=== PATIENT | female | born 1955 | race African-American/Black ===

== ENCOUNTER 2019-07-13 16:05 | Emergency (ER) | payer OTHER ==
[~2019-07-13] VITALS: Ht 165.1 cm; Wt 77.1 kg
--- OUTSIDE RECORDS SUMMARY | 2019-07-13 16:07 | XMS REPORT ---
Author Author [facility] Address Unknown Phone Unavailable Care Team Providers Care Bindery Supervisor Name Role Phone Unavailable Unavailable Problems This patient has no known problems. Allergies, Adverse Reactions, Alerts This patient has no known allergies or adverse reactions. Medications This patient has no known medications. Encounters Start Date/Time End Date/Time Encounter Type Admission Type Attending [facility] Facility Care Department Encounter ID 2018-09-08 00:00:00 2018-09-08 00:00:00 Outpatient [facility] [id number] 2018-09-01 00:00:00 2018-09-01 00:00:00 Outpatient [facility] [id number] 2018-08-24 00:00:00 2018-08-24 00:00:00 Outpatient [facility] [id number] 2018-07-28 00:00:00 2018-07-28 00:00:00 Outpatient [facility] [id number] 2018-07-14 00:00:00 2018-07-14 00:00:00 Outpatient [facility] [id number] 2018-06-02 00:00:00 2018-06-02 00:00:00 Outpatient [facility] [id number] 2018-05-24 00:00:00 2018-05-24 00:00:00 Outpatient [facility] [id number] 2018-04-04 00:00:00 2018-04-04 00:00:00 Outpatient [facility] [id number] 2018-03-31 09:51:07 2018-03-31 09:51:07 Outpatient [facility] [id number] 2018-03-31 09:44:10 2018-03-31 09:44:10 Outpatient [facility] [id number] 2018-03-31 08:45:55 2018-03-31 08:45:55 Outpatient [facility] [id number] 2018-03-11 15:16:48 2018-03-11 15:16:48 Outpatient [facility] [id number] 2018-02-25 14:50:34 2018-02-25 14:50:34 Outpatient [facility] [id number] 2018-02-24 14:03:11 2018-02-24 14:03:11 Outpatient [facility] [id number] 2018-02-17 00:00:00 2018-02-17 00:00:00 Outpatient [facility] [id number] 2018-02-16 13:30:38 2018-02-16 13:30:38 Outpatient [facility] [id number] 2018-02-09 00:00:00 2018-02-09 00:00:00 Outpatient [facility] [id number] 2018-02-09 00:00:00 2018-02-09 00:00:00 Outpatient [facility] [id number] 2018-02-07 09:26:11 2018-02-07 09:26:11 Outpatient [facility] [id number] 2018-02-01 10:51:46 2018-02-01 10:51:46 Outpatient [facility] [id number] 2018-02-01 00:00:00 2018-02-01 00:00:00 Outpatient [facility] [id number] 2018-01-14 09:33:33 2018-01-14 09:33:33 Outpatient [facility] [id number] 2018-01-14 00:00:00 2018-01-14 00:00:00 Outpatient [facility] [id number] 2018-01-05 00:00:00 2018-01-05 00:00:00 Outpatient [facility] [id number] 2018-01-03 07:01:25 2018-01-03 07:01:25 Outpatient [facility] [id number] 2018-01-03 00:00:00 2018-01-03 00:00:00 Outpatient [facility] [id number] 2017-12-24 00:00:00 2017-12-24 00:00:00 Outpatient [facility] [id number] 2017-12-24 00:00:00 2017-12-24 00:00:00 Outpatient [facility] [id number] 2017-12-23 10:00:58 2017-12-23 10:00:58 Outpatient [facility] [id number] 2017-12-23 09:52:37 2017-12-23 09:52:37 Outpatient [facility] [id number] 2017-12-21 14:58:17 2017-12-21 14:58:17 Outpatient [facility] [id number] 2017-12-21 00:00:00 2017-12-21 00:00:00 Outpatient [facility] [id number] 2017-12-07 14:26:59 2017-12-07 14:26:59 Outpatient [facility] [id number] 2017-12-07 12:08:21 2017-12-07 12:08:21 Outpatient [facility] [id number] 2017-12-07 00:00:00 2017-12-07 00:00:00 Outpatient [facility] [id number] 2017-12-07 00:00:00 2017-12-07 00:00:00 Outpatient [facility] [id number] 2017-12-03 00:00:00 2017-12-03 00:00:00 Outpatient [facility] [id number] 2017-11-29 11:29:31 2017-11-29 11:29:31 Outpatient [facility] [id number] 2017-03-24 00:00:00 2017-03-24 00:00:00 Outpatient [facility] [id number] 2017-03-18 00:00:00 2017-03-18 00:00:00 Outpatient [facility] [id number] 2017-03-15 00:00:00 2017-03-15 00:00:00 Outpatient [facility] [id number] 2017-03-11 00:00:00 2017-03-11 00:00:00 Outpatient [facility] [id number] 2016-11-12 00:00:00 2016-11-12 00:00:00 Outpatient [facility] [id number] 2016-11-03 14:17:09 2016-11-03 14:17:09 Outpatient [facility] [id number] 2016-10-20 00:00:00 2016-10-20 00:00:00 Outpatient [facility] [id number] 2016-10-08 13:16:37 2016-10-08 13:16:37 Outpatient [facility] [id number] 2016-09-11 14:21:38 2016-09-11 14:21:38 Outpatient [facility] [id number]
--- OUTSIDE RECORDS SUMMARY | 2019-07-13 16:07 | XMS REPORT ---
Author Author Admin, [place] Organization [facility] Address [address] [address] Phone Allergies, Adverse Reactions, Alerts Allergy Name Reaction Description Start Date Severity Status Provider LATEX Critical Active Tim C Vandermeyden DDS Conditions or Problems Problem Name Problem Code Onset Date Status Entry Date Provider Comment Standard Description Annotate Problems Unknown Medication List Medication Instructions Start Date Stop Date Generic Name NDC Status Provider Patient Instruction AMOXICILLIN 500 MG ORAL CAPSULE Take 4 tabs one hour before dental Tx. AMOXICILLIN 87834999751 Active Tim C Vandermeyden DDS Active ALL DAY ALLERGY CAPSULE CETIRIZINE HCL CAPS 40395718252 Active Tim C Vandermeyden DDS Active Vital Signs Date Name Value Unit Range Description blood pressure, diastolic - 8462-4 87 mm[Hg] BP comer blood pressure, systolic - 8480-6 121 mm[Hg] BP sys pulse rate E&M - 8867-4 76 /min Heart rate blood pressure, diastolic - 8462-4 72 mm[Hg] BP comer blood pressure, systolic - 8480-6 143 mm[Hg] BP sys pulse rate E&M - 8867-4 78 /min Heart rate blood pressure, diastolic - 8462-4 75 mm[Hg] BP comer blood pressure, systolic - 8480-6 128 mm[Hg] BP sys pulse rate E&M - 8867-4 86 /min Heart rate
[2019-07-13] MEDS ORDERED: PANTOPRAZOLE 40 MG 10ML VIAL IV STA (17:12)
[2019-07-13] MEDS ORDERED: ONDANSETRON HCL INJ 2MG/ML 2ML 2 MG/ML VIAL IV STA (17:12)
[2019-07-13] MEDS ORDERED: SODIUM CHLORIDE 0.9% 1000ML 1,000 ML IV STA (17:12)
[2019-07-13 17:38] LABS: CLARITY,URINE CLEAR (CLEAR); COLOR,URINE YELLOW (YELLOW); LEUKOCYTE ESTERASE ,URINE NEGATIVE (NEGATIVE); NITRITE,URINE NEGATIVE (NEGATIVE)
[2019-07-13 17:39] LABS: BASOPHILS % 0.4 % (0.0-1.0); BILIRUBIN,URINE NEGATIVE (NEGATIVE); EOSINOPHILS # (AUTO) 0.3 (0.0-0.4); EOSINOPHILS % 5.6 % (0.0-6.0); HEMOGLOBIN 12.7 g/dL (12.0-16.0); KETONES,URINE NEGATIVE (NEGATIVE); LYMPHOCYTES # (AUTO) 2.5 (1.0-3.2); LYMPHOCYTES % 45.4 % (18.0-39.1); MEAN CORPUSCULAR HEMOGLOBIN 29.3 pg (28-32); MEAN CORPUSCULAR HGB CONC 31.8 g/dL (31-35); MEAN CORPUSCULAR VOLUME 92.4 fL (81-99); MONOCYTES # (AUTO) 0.6 (0.2-0.8); MONOCYTES % 10.1 % (4.4-11.3); NEUTROPHILS # (AUTO) 2.1 (2.1-6.9); NEUTROPHILS % 38.5 % (38.7-80.0); PLATELET COUNT 297 x10e3/uL (140-360); PROTEIN,URINE DIPSTICK NEGATIVE (NEGATIVE); RED BLOOD COUNT 4.33 x10e6/uL (3.6-5.1); RED CELL DISTRIBUTION WIDTH 12.4 % (11.7-14.4); URINE UROBILINOGEN 0.2 mg/dL (0.2 - 1)
[2019-07-13 17:42] LABS: INR 0.88; PARTIAL THROMBOPLASTIN TIME 26.9 seconds (23.8-35.5); PROTHROMBIN TIME 12.5 seconds (11.9-14.5)
--- NOTE | 2019-07-13 17:43 | Diagnostic Imaging Report ---
Examination: Single AP view of the chest. COMPARISON: None. INDICATION: Abdominal pain, GI bleed IMPRESSION: 1. Lines and Tubes: None 2. Lungs are grossly clear. No consolidation or effusion. 3. Cardiomediastinal silhouette is normal. Pulmonary vasculature is normal. 4. No acute bony abnormalities. Signed by: Dr. Gopi Bradshaw M.D. on 07/13/2019 5:40 PM
[2019-07-13] MEDS ORDERED: DICYCLOMINE HCL 20 MG/2 ML VIAL IM ONE (17:45)
[2019-07-13 17:52] LABS: ALANINE AMINOTRANSFERASE 15 IU/L (0-55); ALKALINE PHOSPHATASE 80 IU/L (40-150); ANION GAP 11.9 mmol/L (8-16); BLOOD UREA NITROGEN 15 mg/dL (7-26); BUN/CREATININE RATIO 19 (6-25); CALCIUM 9.1 mg/dL (8.4-10.2); CARBON DIOXIDE 28 mmol/L (22-29); CHLORIDE 101 mmol/L (98-107); CREATINE KINASE 107 IU/L (29-168); CREATININE, SERUM 0.78 mg/dL (0.57-1.11); EST GLOMERULAR FILTRATION RATE > 60 ML/MIN (60-); GLUCOSE 74 mg/dL (74-118); LIPASE 37 U/L (8-78); POTASSIUM 3.9 mmol/L (3.5-5.1); SODIUM 137 mmol/L (136-145)
[2019-07-13 18:01] LABS: BACTERIA,URINE FEW /HPF; EPITHELIAL CELLS,URINE RARE /LPF; RBC,URINE 0-5 /HPF (0-5)
--- NOTE | 2019-07-13 18:48 | Diagnostic Imaging Report ---
EXAM: Right Upper Quadrant Ultrasound INDICATION: ^ABD PAIN COMPARISON: None. TECHNIQUE: Transverse and longitudinal images of the right upper abdomen were obtained. FINDINGS: Liver: Size: 12.1 cm in the right midclavicular line, normal Appearance: Normal echogenicity, smooth contour Mass: No focal masses Gallbladder: Stones/Sludge: None Wall: 0.2 cm Appearance: No wall thickening, pericholecystic fluid or hydrops. Sonographic Montoya's Sign: Negative Bile Ducts: Intrahepatic Ducts: No dilatation Extrahepatic Ducts: Common bile duct measures 0.5 cm, no dilatation Pancreas: Visualized portions of the pancreatic neck and proximal body are normal. Kidneys: Length: Right 9.0 cm Echogenicity: Normal Collecting System: No hydronephrosis Stone: None Cyst/Mass: None Vessels: Aorta: Visualized portions are normal Inferior Vena Cava: Visualized portions are normal Main Portal Vein: 0.8 cm, normal size with hepatopetal flow. Free Fluid: No ascites or pleural effusion IMPRESSION: 1. Essentially unremarkable right upper quadrant ultrasound. No evidence of cholelithiasis. Signed by: Dr. Gopi Bradshaw M.D. on 07/13/2019 6:46 PM
--- NOTE | 2019-07-13 19:32 | NUR ---
report given to Dusty NGUYEN who will discharge patient.
[2019-07-13 20:10] VITALS: BP 134/90
[2019-07-13] MEDS ORDERED: BENTYL10 MG/1 ML IV (20:17)
[2019-07-13] MEDS ORDERED: ZOFRAN4 MG PO (20:17)
== END 2019-07-13 20:10 | disposition home or self-care (01) ==
LOC: ER 16:05
DX: R10.11 Right upper quadrant pain (principal); R10.13 Epigastric pain; R11.2 Nausea with vomiting, unspecified; J44.9 Chronic obstructive pulmonary disease, unspecified; I09.9 Rheumatic heart disease, unspecified; F41.9 Anxiety disorder, unspecified; K21.9 Gastro-esophageal reflux disease without esophagitis; Z86.73 Personal history of transient ischemic attack (TIA), and cerebral infarction without residual deficits
CPT/HCPCS: 36415; 71045; 76705; 80053; 81001; 82550; 82553; 83690; 83735; 84484; 85025; 85610; 85730; 86850; 86900; 87086; 93005; 99284; C9113; J0500; J2405; J7030